=== PATIENT | male | born 1955 | race Caucasian/White ===

== ENCOUNTER 2022-09-12 15:39 | Inpatient (IN) | payer OTHER ==
[~2022-09-12] VITALS: Ht 167.6 cm; Wt 72.0 kg
[2022-09-12] MEDS ORDERED: Amlodipine Bes2.5 MG PO (16:12)
[2022-09-12] MEDS ORDERED: LEVSOD100 PO (16:12)
[2022-09-12] MEDS ORDERED: OMEP20ER PO (16:12)
[2022-09-12] MEDS ORDERED: ATOR20 PO (16:13)
[2022-09-12 20:14] LABS: Percent Saturation 9.3 % (20.0-50.0)
--- NOTE | 2022-09-12 22:49 | NUR ---
REPORT RECEIVED FROM CRISTA MOSCOSO. PT ARRIVED TO ROOM 332 VIA WC. PLACED IN [place] PRECAUTIONS IN NEGATIVE PRESSURE ROOM UNTIL TB RULED OUT. PT A/O X 4 ON ARRIVAL, IND TO TX TO BED. STEADY ON FEET. PT HAS ACTIVE COUGH BUT NO BLOOD COUGHED UP AT THIS TIME. PT DENIES CP, SOB AT REST OR WITH ACTIVITY. LS CLEAR/DIM. PT ORIENTED TO ROOM/CALL LIGHT/FALL PRECAUTIONS. BED IN LOW POSITIION. EDUCATED ON BRONCHOSCOPY AND NPO STATUS AT [facility]. IV FLUIDS STARTED AT 75 PER ORDER. PT HAD 100.6 TEMP. TYLENOL GIVEN. COUGH SYRUP GIVEN. PT DENIES CONCERNS OR QUESTIONS AT THIS TIME.
--- NOTE | 2022-09-13 06:26 | NUR ---
SHIFT SUMMARY: PT A/O X 4 IND IN ROOM, PLEASANT AND COOPERATIVE. IN [place] PRECAUTIONS TO R/OUT TB. PT DID NOT HAVE ANY EPISODES OF COUGHING UP BLOOD LAST NIGHT. HE HAS BEEN NPO SINCE MIDNIGHT FOR BRONCHOSCOPY THIS AM. SURGICAL PACKET COMPLETED. COVID RESULTS PENDING FOR PROCEDURE. PT DENIES PAIN OR CONCERNS AT THIS TIME, RESTING IN BED IN NO APPARENT DISTRESS.
[2022-09-13 06:51] LABS: SARS-Cov-2 (COVID-19) PCR, MMC NEGATIVE (NEGATIVE)
[2022-09-13 07:51] LABS: BASOPHILS ABSOLUTE AUTO 0.06 K/mm3 (0.00-0.23); BASOPHILS PERCENT AUTO 1 % (0-2); EOSINOPHILS ABSOLUTE AUTO 0.11 K/mm3 (0.00-0.68); EOSINOPHILS PERCENT AUTO 1 % (0-6); Hematocrit 31.2 % (37.0-53.0); Hemoglobin 9.6 g/dL (13.5-17.5); IMMATURE GRAN ABSOLUTE AUTO 0.07 K/mm3 (0.00-0.10); IMMATURE GRAN PERCENT AUTO 1 % (0-1); LYMPHOCYTES ABSOLUTE AUTO 1.28 K/mm3 (0.84-5.20); LYMPHOCYTES PERCENT AUTO 14 % (21-46); MONOCYTES PERCENT AUTO 8 % (4-13); Mean Corpuscular HGB 26.3 pg (26.0-34.0); Mean Corpuscular HGB Conc 30.8 g/dL (31.5-36.5); Mean Corpuscular Volume 86 fL (80-100); Mean Platelet Volume 9.4 fL (9.1-12.4); NEUTROPHILS ABSOLUTE AUTO 6.71 K/mm3 (1.96-9.15); NEUTROPHILS PERCENT AUTO 75 % (41-73); Platelet Count 257 K/mm3 (150-400); RDW Coefficient Variation 18.1 % (11.7-14.2); RDW Standard Deviation 56.7 fL (35.1-46.3); Red Blood Cell Count 3.65 M/mm3 (4.30-5.90); White Blood Cell Count 8.93 K/mm3 (4.00-11.30)
[2022-09-13 08:04] LABS: Bun/Creatinine Ratio 10.1 (12.0-20.0); Calcium, Blood 8.7 mg/dL (8.5-10.1); Creatinine, Blood 0.89 mg/dL (0.60-1.20)
[2022-09-13 08:05] LABS: International Normalized Ratio 1.14; Prothrombin Time Results 11.9 Sec (9.7-11.5)
--- NOTE | 2022-09-13 13:11 | NUR ---
09/13/22 1311 Dave Garcia HISTORY,CHART, MEDICATIONS AND ALLERGIES REVIEWED BEFORE START OF PROCEDURE. PATIENT CONFIRMS NPO STATUS AND AGREES WITH SCHEDULED PROCEDURE. 3-LEAD EKG REVIEWED WITH PHYSICIAN PRIOR TO START OF PROCEDURE. MONITOR INTACT WITH CONTINUOUS PULSE OXIMETRY, 3-LEAD EKG, CAPNOGRAPHY AND INTERMITTENT BP. SUPPLEMENTAL O2 VIA POM THROUGHOUT PROCEDURE TO MAINTAIN O2 SATURATION ABOVE 90%. PATIENT DETERMINED TO BE ASA APPROPRIATE FOR MODERATE SEDATION PRIOR TO START OF PROCEDURE BY DR. MAY, PULMONOLGIST.
--- NOTE | 2022-09-13 17:31 | NUR ---
SHIFT SUMMARY- PT IS A/O, PLESANT AND COOPERATIVE. HE WAS NPO THIS MORINING FOR PRE PROCEDURE. HE WENT FOR A CT OF THE CHEST FOLLOWED BY HIS BRONCHOSCOPY. ISOLATION FOR R/O, TB WAS MAINTAINED. HE IS INDEPENDENT IN THE ROOM. HE SLEPT FOR MUCH OF THIS AFTERNOON, POST PROCEDURE. HIS BED IS IN THE LOW POSITION AND CALL LIGHT IS WITHIN REACH.
--- NOTE | 2022-09-14 04:04 | NUR ---
SHIFT SUMMARY NO ACUTE CHANGE TO PT CONDITION. PT SLEEPING OFF AND ON THROUGHOUT THE NIGHT. PT INDEPENDENT IN ROOM. CALL LIGHT IS WITHIN HIS REACH. LR RUNNING AT 50/HR.
[2022-09-14 06:29] LABS: BASOPHILS ABSOLUTE AUTO 0.07 K/mm3 (0.00-0.23); BASOPHILS PERCENT AUTO 1 % (0-2); EOSINOPHILS ABSOLUTE AUTO 0.12 K/mm3 (0.00-0.68); EOSINOPHILS PERCENT AUTO 1 % (0-6); Hematocrit 30.2 % (37.0-53.0); Hemoglobin 9.2 g/dL (13.5-17.5); IMMATURE GRAN ABSOLUTE AUTO 0.06 K/mm3 (0.00-0.10); IMMATURE GRAN PERCENT AUTO 1 % (0-1); LYMPHOCYTES ABSOLUTE AUTO 0.97 K/mm3 (0.84-5.20); LYMPHOCYTES PERCENT AUTO 10 % (21-46); MONOCYTES ABSOLUTE AUTO 0.85 K/mm3 (0.16-1.47); MONOCYTES PERCENT AUTO 9 % (4-13); Mean Corpuscular HGB 26.1 pg (26.0-34.0); Mean Corpuscular HGB Conc 30.5 g/dL (31.5-36.5); Mean Corpuscular Volume 86 fL (80-100); Mean Platelet Volume 9.7 fL (9.1-12.4); NEUTROPHILS ABSOLUTE AUTO 7.46 K/mm3 (1.96-9.15); NEUTROPHILS PERCENT AUTO 78 % (41-73); Platelet Count 256 K/mm3 (150-400); RDW Coefficient Variation 18.6 % (11.7-14.2); RDW Standard Deviation 58.4 fL (35.1-46.3); Red Blood Cell Count 3.52 M/mm3 (4.30-5.90); White Blood Cell Count 9.53 K/mm3 (4.00-11.30)
[2022-09-14 06:53] LABS: Bun/Creatinine Ratio 11.2 (12.0-20.0); Calcium, Blood 8.4 mg/dL (8.5-10.1); Creatinine, Blood 0.9 mg/dL (0.60-1.20); Potassium, Blood 3.5 mmol/L (3.5-5.5)
[2022-09-14 10:11] LABS: Percent Saturation 8.4 % (20.0-50.0)
--- NOTE | 2022-09-14 17:57 | NUR ---
SHIFT SUMMARY: PT A&O X4, PLEASANT, AND COOPERATIVE. PT HAS A PRODUCTIVE COUGH WITH THICK SPUTUM WITH TINGE BLOOD. PT ABLE TO PROVIDE SPUTUM CULTURE AND SENT TO LAB. PT RIGHT AC IV LEAKING AND REMOVED. NEW IV INSERTED INTO LEFT FOREARM WITH 3 ATTEMPTS. PT HAD NO COMPLAINTS OF PAIN THROUGHOUT SHIFT. PT WAITING ON BLOOD AND SPUTUM CULTURES TO RULE OUT TB. PT RECEVIED IV ABX WITH NO ADVERSE EFFECTS OR SYMPTOMS. PT IN BED WITH CALL LIGHT WITHIN REACH.
[2022-09-15 03:09] LABS: QUANTIFERON MITOGEN VALUE 8.56 IU/mL (.); QUANTIFERON NIL VALUE 0.01 IU/mL (.); QUANTIFERON TB1 AG VALUE 0.01 IU/mL (.); QUANTIFERON TB2 AG VALUE 0.01 IU/mL (.); QUANTIFERON-TB GOLD PLUS Negative (Negative)
--- NOTE | 2022-09-15 08:10 | NUR ---
PATIENT IS A&OX4, NO COMPLAINTS OF PAIN OR DISCOMFORT. DID NOT VISUALIZE ANY SPUTUM. COUGH HOWEVER WAS A VERY STRONG HACKING COUGH. CHRISS DID STATE THAT SPUTUM WHEN HE DID GET SOMETHING UP HAD "LITTLE STRINGS OF BLOOD". THIS RN DID NOT VISUALIZE ANY SPUTUM OVERNIGHT. PATIENT ASKING ABOUT RESULTS.
--- NOTE | 2022-09-15 18:11 | NUR ---
SHIFT SUMMARY PT A&O X4 AND COOPERATIVE OF CARE. INDEPENDENT IN ROOM. C/O HEADACHE IN AFTERNOON. MEDICATED PER EMAR WITH GOOD EFFICACY. TOLERATING DIET. TB RESULTS CAME BACK NEGATIVE THIS AFTERNOON. PT STATED HE WOULD LIKE TO GO HOME TONIGHT SO GAVE DISCHARGE ORDERS. BED IN LOWEST POSITION AND CALL LIGHT IN REACH. WILL WORK ON DISCHARGE ORDERS.
--- NOTE | 2022-09-15 22:55 | NUR ---
PATIENT DISCHARGED TO HOME AT 2025 AFTER RECEIVING DISCHARGE INSTRUCTIONS. NEW RX FAXED TO PATIENTS PHARMACY OF CHOICE
== END 2022-09-15 20:26 | disposition home or self-care (01) | DRG 166 ==
LOC: ER 15:39 → MEDS 15:40
PROVIDERS: Emergency Medicine; Internal Medicine; Internal Medicine Critical Care Medicine; Student in an Organized Health Care Education/Training Program; ADMIT Internal Medicine
PROC: 0B9D8ZX Drainage of Right Middle Lung Lobe, Via Natural or Artificial Opening Endoscopic, Diagnostic (ICD-10-PCS; principal; 2022-09-13 11:00)
PROC: 07973ZX Drainage of Thorax Lymphatic, Percutaneous Approach, Diagnostic (ICD-10-PCS; 2022-09-13 11:00)
PROC: 0BBD8ZX Excision of Right Middle Lung Lobe, Via Natural or Artificial Opening Endoscopic, Diagnostic (ICD-10-PCS; 2022-09-13 11:00)
PROC: 0BD58ZX Extraction of Right Middle Lobe Bronchus, Via Natural or Artificial Opening Endoscopic, Diagnostic (ICD-10-PCS; 2022-09-13 11:00)
DX: J18.9 Pneumonia, unspecified organism (principal); J96.01 Acute respiratory failure with hypoxia; R04.2 Hemoptysis; E03.9 Hypothyroidism, unspecified; I10 Essential (primary) hypertension; D64.9 Anemia, unspecified; Z20.822 Contact with and (suspected) exposure to COVID-19; Z88.8 Allergy status to other drugs, medicaments and biological substances; Z87.891 Personal history of nicotine dependence; Z79.899 Other long term (current) drug therapy; D50.9 Iron deficiency anemia, unspecified; D63.8 Anemia in other chronic diseases classified elsewhere; Z98.890 Other specified postprocedural states
CPT/HCPCS: 36415; 71045; 71260; 80048; 82728; 83540; 83550; 85025; 85610; 86480; 87070; 87071; 87075; 87076; 87205; 88108; 88173; 88305; 88312; 93005; 93010; 99285-25; A9270; G0378; J0171; J0692; J2250; J3010; J7030; J7050; J7120; Q9967; U0004